=== PATIENT | male | born 1985 | race American Indian/Alaskan Native ===

== ENCOUNTER 2018-05-02 14:26 | Emergency (ER) | payer SELFPAY ==
[2018-05-02] MEDS ORDERED: ANTIVERT PO ONE (16:10)
--- NOTE | 2018-05-02 16:11 | Emergency Department Report ---
Blank Doc - Documentation Documentation: ED MSE Screening Patient Name: KARTHIK DUPREE Date of : [birth year] Patient Status: Emergency Emergency Provider: SHAMEKAJUNE Hernandez Date: 05/02/18 16:07 Initialization Date: 05/02/18 16:07 Chief Complaint: Abdominal Pain Stated Complaint: ABDOMINAL PAIN Time Seen by Provider: 05/02/18 16:07 - HPI History of Present Illness: 28-year-old -H[place]ian male presents to the emergency department with complaint of a 3 to four-day history of right-sided headache that seems to be intermittent. On top of this, when the patient wakes up and with certain movements, the patient is very dizzy and feels like he is off balanced or stumbling to the side. He denies any slurred speech, vision change, fever. He has not taken anything for her symptoms prior presentation. He denies any past medical history. He does not have a primary care physician. - ROS Review of Systems: Positive for headache, dizziness Negative for fever, slurred speech, vision change - Exam Vital Signs: Vital Signs 05/02/18 15:06 Temperature 98.5 F Pulse Rate 69 Blood Pressure 128/67 O2 Sat by Pulse 96 Oximetry Physical Exam: Pupils equal reactive to light bilaterally. Extraocular motion intact. Fatigable horizontal nystagmus. Heart and lung sounds are normal and auscultation. MSE screening note: Focused history and physical exam performed. Due to findings the following was ordered: He will have a CBC, BMP, TSH and a CT scan of the head without contrast. He will be given some Antivert.
--- NOTE | 2018-05-02 16:39 | Cat Scan Report ---
FINAL REPORT PROCEDURE: CT head without contrast. TECHNIQUE: Computerized tomography of the head was performed without contrast material. HISTORY: Dizziness, headache. COMPARISON: No prior studies are available for comparison. FINDINGS: The ventricles are normal in size. The rodriguez matter and white matter appear normal. There are no mass lesions. There is no intracranial hemorrhage. There are no signs of acute infarction. The calvarium appears intact. The mastoid air cells and visualized paranasal sinuses are clear. IMPRESSION: Normal study.
[2018-05-02 16:57] LABS: Basophils % (Auto) 0.5 % (0.0-1.8); Eosinophils # (Auto) 0.1 K/mm3 (0.0-0.4); Hematocrit 42.1 % (35.5-45.6); Lymphocytes % (Auto) 25.4 % (13.4-35.0); Mean Corpuscular HGB Conc 33 % (32-34); Mean Corpuscular Hemoglobin 32 pg (28-32); Mean Corpuscular Volume 96 fl (84-94); Monocytes # (Auto) 0.7 K/mm3 (0.0-0.8); Monocytes % (Auto) 9.1 % (0.0-7.3); Platelet Count 308 K/mm3 (140-440); Red Blood Count 4.37 M/mm3 (3.65-5.03); Red Cell Distribution Width 12.6 % (13.2-15.2)
[2018-05-02 17:09] LABS: BUN/Creatinine Ratio 13; Blood Urea Nitrogen 10 mg/dL (9-20); Hemolysis Index 0
--- NOTE | 2018-05-02 18:45 | Emergency Department Report ---
ED Dizziness [facility] - General Chief Complaint: Dizziness Stated Complaint: DIZZINESS/MIGRAINE Time Seen by Provider: 05/02/18 16:10 Source: patient Mode of arrival: Ambulatory Limitations: No Limitations - History of Present Illness Initial Comments: 28-year-old -[place] Islander male presents to the emergency department with complaint of a 3 to four-day history of right-sided headache that seems to be intermittent. On top of this, when the patient wakes up and with certain movements, the patient is very dizzy and feels like he is off balanced or stumbling to the side. He denies any slurred speech, vision change, fever. He has not taken anything for her symptoms prior presentation. He denies any past medical history. He does not have a primary care physician. - Related Data Previous Rx's Medication Instructions Recorded Last Taken Type Meclizine [Antivert] 25 mg PO TID PRN #30 tablet 05/02/18 Unknown Rx ED Review of Systems ROS: Stated complaint: DIZZINESS/MIGRAINE Other details as noted in HPI ED Past Medical Hx - Past Medical History Previous Medical History?: Yes Hx Asthma: Yes (childhood) - Surgical History Past Surgical History?: No - Social History Smoking Status: Current Some Day Smoker Substance Use Type: Alcohol, Marijuana - Medications Home Medications: Home Medications Medication Instructions Recorded Confirmed Last Taken Type Meclizine [Antivert] 25 mg PO TID PRN #30 tablet 05/02/18 Unknown Rx ED Physical Exam - General Limitations: No Limitations ED Course Vital Signs 05/02/18 14:56 Temperature 98.6 F Pulse Rate 60 Respiratory 18 Rate Blood Pressure 127/76 O2 Sat by Pulse 97 Oximetry ED Medical Decision Making - Lab Data Result diagrams: 05/02/18 16:42 05/02/18 16:42 Critical care attestation.: If time is entered above; I have spent that time in minutes in the direct care of this critically ill patient, excluding procedure time. ED Disposition Clinical Impression: Vertigo Disposition: DC-01 TO HOME OR SELFCARE Is pt being admited?: No Does the pt Need Aspirin: No Condition: Stable Instructions: Vertigo (ED) Additional Instructions: Follow up with primary care provider Dr. Luna in 2-3 days. Return to ER if fever, dizziness, chest pain, shortness of breath, or symptoms are not improving and is discussed. Prescriptions: Meclizine [Antivert] 25 mg PO TID PRN #30 tablet PRN Reason: Vertigo Referrals: VIKRAM LUNA MD [Referring] - 3-5 Days Time of Disposition: 18:43 Print Language: MALTESE
[2018-05-02 18:50] VITALS: BP 125/78
== END 2018-05-02 18:50 | disposition home or self-care (01) ==
LOC: ED 14:26
DX: R51 Headache (principal); R42 Dizziness and giddiness; J45.909 Unspecified asthma, uncomplicated; F17.200 Nicotine dependence, unspecified, uncomplicated; F12.10 Cannabis abuse, uncomplicated
CPT/HCPCS: 36415; 70450; 80048; 84443; 85025

== ENCOUNTER 2021-01-18 17:47 | Emergency (ER) | payer SELFPAY ==
[2021-01-18 17:54] VITALS: BP 128/88
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
== END 2021-01-18 18:43 | disposition home or self-care (01) ==
LOC: ED 17:47
DX: M54.2 Cervicalgia (principal); J45.909 Unspecified asthma, uncomplicated; F17.200 Nicotine dependence, unspecified, uncomplicated; F12.10 Cannabis abuse, uncomplicated; Z79.899 Other long term (current) drug therapy; V49.49XA Driver injured in collision with other motor vehicles in traffic accident, initial encounter; Y93.89 Activity, other specified; Y92.488 Other paved roadways as the place of occurrence of the external cause; Y99.8 Other external cause status
CPT/HCPCS: 99282

== ENCOUNTER 2021-04-29 22:03 | Emergency (ER) | payer SELFPAY ==
[2021-04-29 23:47] VITALS: BP 151/76
--- NOTE | 2021-04-30 03:07 | Emergency Department Report ---
ED General Adult HPI - General Chief complaint: Skin/Abscess/Foreign Body Stated complaint: RT EAR PRESSURE/LT ARM CYST Time Seen by Provider: 04/30/21 02:35 Source: patient Mode of arrival: Ambulatory Limitations: No Limitations - History of Present Illness Initial comments: 35-year-old male [facility] emerge department complaining of a 1 to 2-week history of right ear pressure of an unknown etiology. Reports no tinnitus, no bleeding, no trauma reports no fever, chills, sweats reports no chest pain palpitation no hemoptysis no hematemesis hematochezia no sore throat no odynophagia no dysphagia -: Gradual Radiation: non-radiation Quality: dull Consistency: constant Improves with: none Associated Symptoms: denies: confusion, chest pain, cough, diaphoresis, fever/chills, loss of appetite, malaise, nausea/vomiting, rash, shortness of breath, syncope, weakness - Related Data Previous Rx's Medication Instructions Recorded Last Taken Type Meclizine [Antivert] 25 mg PO TID PRN #30 tablet 05/02/18 Unknown Rx Carbamide Peroxide 6.5% [Ear Wax 5 drops OD BID #1 bottle 04/30/21 Unknown Rx Drops] Allergies Allergy/AdvReac Type Severity Reaction Status Date / Time No Known Allergies Allergy Unverified 01/18/21 17:50 ED Review of Systems ROS: Stated complaint: RT EAR PRESSURE/LT ARM CYST Other details as noted in HPI Comment: All other systems reviewed and negative ED Past Medical Hx - Past Medical History Hx Asthma: Yes (childhood) - Social History Smoking Status: Current Every Day Smoker - Medications Home Medications: Home Medications Medication Instructions Recorded Confirmed Last Taken Type Meclizine [Antivert] 25 mg PO TID PRN #30 tablet 05/02/18 Unknown Rx Carbamide Peroxide 6.5% [Ear Wax 5 drops OD BID #1 bottle 04/30/21 Unknown Rx Drops] ED Physical Exam - General Limitations: No Limitations General appearance: alert, in no apparent distress - Head Head exam: Present: atraumatic, normocephalic - Eye Eye exam: Present: normal appearance, PERRL, EOMI Pupils: Present: normal accommodation - ENT ENT exam: Present: normal exam, normal orophraynx, mucous membranes moist, TM's normal bilaterally - Neck Neck exam: Present: normal inspection, full ROM, lymphadenopathy - Respiratory Respiratory exam: Present: normal lung sounds bilaterally. Absent: respiratory distress, wheezes, rales, rhonchi, chest wall tenderness, accessory muscle use - Cardiovascular Cardiovascular Exam: Present: regular rate, normal rhythm, normal heart sounds. Absent: systolic murmur, diastolic murmur, rubs, gallop - GI/Abdominal GI/Abdominal exam: Present: soft, normal bowel sounds - Rectal Rectal exam: Present: deferred - Extremities Exam Extremities exam: Present: normal inspection, normal capillary refill, pedal edema, other (Lipoma to the left arm medial aspect of the bicep area no tenderness. No lymphangitis no cellulitis. Pulses 2+ capillary refills are brisk.). Absent: joint swelling - Back Exam Back exam: Present: normal inspection. Absent: CVA tenderness (R), CVA tenderness (L) - Neurological Exam Neurological exam: Present: alert, oriented X3 - Psychiatric Psychiatric exam: Present: normal affect, normal mood - Skin Skin exam: Present: warm, dry, intact, normal color. Absent: rash ED Course Vital Signs 04/29/21 23:45 Temperature 97.8 F Pulse Rate 65 Respiratory 18 Rate Blood Pressure 151/76 O2 Sat by Pulse 96 Oximetry Critical care attestation.: If time is entered above; I have spent that time in minutes in the direct care of this critically ill patient, excluding procedure time. ED Disposition Clinical Impression: Impacted cerumen of right ear, Lipoma Disposition: TO HOME OR SELFCARE Is pt being admited?: No Does the pt Need Aspirin: No Condition: Stable Instructions: Ear Drops, Adult, Lipoma Removal, Ear Irrigation, Lipoma Prescriptions: Carbamide Peroxide 6.5% [Ear Wax Drops] 5 drops OD BID #1 bottle Referrals: CHAKA HAJI MD [Staff Physician] - 3-5 Days (For the lipoma)
== END 2021-04-30 03:15 | disposition home or self-care (01) ==
LOC: ED 22:03
DX: H61.21 Impacted cerumen, right ear (principal); D17.22 Benign lipomatous neoplasm of skin and subcutaneous tissue of left arm; J45.909 Unspecified asthma, uncomplicated; F17.200 Nicotine dependence, unspecified, uncomplicated; Z79.899 Other long term (current) drug therapy
CPT/HCPCS: 99282

== ENCOUNTER 2022-05-20 09:59 | Emergency (ER) | payer SELFPAY ==
--- NOTE | 2022-05-20 10:22 | Emergency Department Report ---
ED Neck Pain/Injury HPI - General Chief Complaint: Neck Pain/Injury Stated Complaint: Left arm aching and back of neck Mode of arrival: Ambulatory Limitations: No Limitations - History of Present Illness Initial Comments: Patient is a 36-year-old male with no past medical history who presents to the ED with complaint of acute onset persistent left lateral neck pain that radiates to the left shoulder intermittently for the last 2 weeks after heavy lifting at work. Patient states that the pain is especially worse with any movement or any active range of motion of the left shoulder or left lateral neck. Patient states that he has been taking [id number] medications for pain with no relief. Patient denies fall, traumatic injury, headache, nausea and vomiting, dysphagia, dysphonia, dizziness, syncope, seizures, fall, back pain, chest pain or shortness of breath, nausea and vomiting, left arm weakness or numbness. MD Complaint: neck pain (left lateral neck pain), other (left shoulder pain) -: Gradual, week(s) (2) Place: work Radiation: left lateral, left shoulder Severity: severe, constant Severity scale (0 -10): 8 Quality: sharp, aching Consistency: constant Improves With: none Worsens With: movement of extremity, movement of neck Context: lifting, turning/bending Associated Symptoms: denies: headache, fever, numbness, tingling, weakness, vertigo, difficulty walking, swollen glands, difficulty swallowing, nausea, vomiting Treatments Prior to Arrival: none - Related Data Previous Rx's Medication Instructions Recorded Last Taken Type Meclizine [Antivert] 25 mg PO TID PRN #30 tablet 05/02/18 Unknown Rx Carbamide Peroxide 6.5% [Ear Wax 5 drops OD BID #1 bottle 04/30/21 Unknown Rx Drops] Baclofen 20 mg PO Q12H PRN #30 tab 05/20/22 Unknown Rx Ibuprofen [Motrin] 800 mg PO Q8HR PRN #30 tablet 05/20/22 Unknown Rx predniSONE [Deltasone] 40 mg PO QDAY #10 tab 05/20/22 Unknown Rx Allergies Allergy/AdvReac Type Severity Reaction Status Date / Time No Known Allergies Allergy Unverified 01/18/21 17:50 ED Review of Systems ROS: Stated complaint: Left arm aching and back of neck Other details as noted in HPI Constitutional: denies: chills, fever Eyes: denies: eye pain, eye discharge, vision change ENT: denies: ear pain, throat pain Respiratory: denies: cough, shortness of breath, wheezing Cardiovascular: denies: chest pain, palpitations Endocrine: no symptoms reported Gastrointestinal: denies: abdominal pain, nausea, vomiting, diarrhea Genitourinary: denies: urgency, dysuria Musculoskeletal: arthralgia (left lateral neck pain; left shoulder). denies: back pain, joint swelling, myalgia Skin: denies: rash, lesions Neurological: denies: headache, weakness, paresthesias Psychiatric: denies: anxiety, depression Hematological/Lymphatic: denies: easy bleeding, easy bruising ED Past Medical Hx - Past Medical History Previous Medical History?: Yes Hx Asthma: Yes (childhood) - Surgical History Past Surgical History?: No - Social History Smoking Status: Current Every Day Smoker - Medications Home Medications: Home Medications Medication Instructions Recorded Confirmed Last Taken Type Meclizine [Antivert] 25 mg PO TID PRN #30 tablet 05/02/18 Unknown Rx Carbamide Peroxide 6.5% [Ear Wax 5 drops OD BID #1 bottle 04/30/21 Unknown Rx Drops] Baclofen 20 mg PO Q12H PRN #30 tab 05/20/22 Unknown Rx Ibuprofen [Motrin] 800 mg PO Q8HR PRN #30 tablet 05/20/22 Unknown Rx predniSONE [Deltasone] 40 mg PO QDAY #10 tab 05/20/22 Unknown Rx ED Physical Exam - General Limitations: No Limitations General appearance: alert, in no apparent distress - Head Head exam: Present: atraumatic, normocephalic, normal inspection - Eye Eye exam: Present: normal appearance, PERRL, EOMI Pupils: Present: normal accommodation - ENT ENT exam: Present: normal exam, normal orophraynx, mucous membranes moist, TM's normal bilaterally, normal external ear exam - Neck Neck exam: Present: normal inspection, tenderness (Palpable left lateral trapezius and sternocleidomastoid muscle tenderness), full ROM. Absent: lymphadenopathy - Respiratory Respiratory exam: Present: normal lung sounds bilaterally. Absent: respiratory distress, wheezes, rales, rhonchi, chest wall tenderness, accessory muscle use, decreased breath sounds, prolonged expiratory - Cardiovascular Cardiovascular Exam: Present: regular rate, normal rhythm, normal heart sounds. Absent: systolic murmur, diastolic murmur, rubs, gallop - GI/Abdominal GI/Abdominal exam: Present: soft, normal bowel sounds. Absent: tenderness, guarding, rebound, rigid, hyperactive bowel sounds, hypoactive bowel sounds, mass - Extremities Exam Extremities exam: Present: normal inspection, full ROM, tenderness (Palpable left shoulder and left lateral cervicakl muscle tenderness), normal capillary refill - Back Exam Back exam: Present: normal inspection, full ROM. Absent: tenderness, CVA tenderness (R), CVA tenderness (L), muscle spasm, paraspinal tenderness, rash noted - Neurological Exam Neurological exam: Present: alert, oriented X3, CN II-XII intact, normal gait, reflexes normal - Psychiatric Psychiatric exam: Present: normal affect, normal mood - Skin Skin exam: Present: warm, dry, intact, normal color. Absent: rash ED Course Vital Signs 05/20/22 10:04 Temperature 98.2 F Pulse Rate 70 Respiratory 18 Rate Blood Pressure 134/71 [Right] O2 Sat by Pulse 97 Oximetry ED Medical Decision Making - Medical Decision Making This is a 36-year-old male with no past medical history who presents to the ED with complaint of acute onset persistent left lateral neck pain that radiates to the left shoulder intermittently for the last 2 weeks after heavy lifting at work. Patient states that the pain is especially worse with any movement or any active range of motion of the left shoulder or left lateral neck. Patient states that he has been taking [id number] medications for pain with no relief. In the ED, patient is alert and oriented x3 and is not in any distress. Patient is hemodynamically stable. Patient was discharged home on pain medication based on the history and physical exam findings of suspected muscle strain of the left shoulder versus tendinitis versus bursitis or cervical muscle strain. Patient was advised to follow-up with his primary care physician in 7 to 10 days for reevaluation or return to the ED immediately if symptoms get worse. - Differential Diagnosis shoulder sprain; shoulder bursitis, cervica sprain; tendonitis Critical care attestation.: If time is entered above; I have spent that time in minutes in the direct care of this critically ill patient, excluding procedure time. ED Disposition Clinical Impression: Bursitis of left shoulder, Left shoulder tendinitis Strain of sternocleidomastoid muscle Qualifiers: Encounter type: initial encounter Qualified Code(s): S16.1XXA - Strain of muscle, fascia and tendon at neck level, initial encounter Sprain of left shoulder Qualifiers: Encounter type: initial encounter Shoulder sprain type: unspecified sprain Qualified Code(s): S43.402A - Unspecified sprain of left shoulder joint, initial encounter Disposition: HOME / SELF CARE / HOMELESS Is pt being admited?: No Does the pt Need Aspirin: No Condition: Stable Instructions: Cervical Sprain, Bursitis, [id number], Cervical Strain and Sprain Rehab-SportsMed Additional Instructions: Take medication with food, drink plenty of fluids and follow-up with your primary care physician in 7 to 10 days for reevaluation. Return to the ED immediately if symptoms get worse Prescriptions: Baclofen 20 mg PO Q12H PRN #30 tab PRN Reason: Muscle Spasm predniSONE [Deltasone] 40 mg PO QDAY #10 tab Ibuprofen [Motrin] 800 mg PO Q8HR PRN #30 tablet PRN Reason: Pain , Severe (7-10) Referrals: [facility] [Provider Group] - 7-10 days Time of Disposition: 10:24 Print Language: CENTRAL AFRICAN
[2022-05-20 10:59] VITALS: BP 133/84
== END 2022-05-20 11:14 | disposition home or self-care (01) ==
LOC: ED 09:59
DX: S43.402A Unspecified sprain of left shoulder joint, initial encounter (principal); S16.1XXA Strain of muscle, fascia and tendon at neck level, initial encounter; M75.52 Bursitis of left shoulder; M77.8 Other enthesopathies, not elsewhere classified; J45.909 Unspecified asthma, uncomplicated; F17.290 Nicotine dependence, other tobacco product, uncomplicated; X58.XXXA Exposure to other specified factors, initial encounter; Y93.89 Activity, other specified; Y92.89 Other specified places as the place of occurrence of the external cause; Y99.8 Other external cause status
CPT/HCPCS: 99282